=== PATIENT | female | born 2000 | race Hispanic/Latino ===

== ENCOUNTER 2019-02-04 23:06 | Emergency (ER) | payer OTHER ==
[2019-02-04 23:21] VITALS: BP 138/78; PULSE 100; RESP 20; TEMP 98; O2SAT 100
[2019-02-04] MEDS ORDERED: Lidocaine Hydrochloride 5 ML INJ ONE (23:36)
[2019-02-04] MEDS ORDERED: Lidocaine 1% Inj (20ml) INFIL STA (23:58)
--- NOTE | 2019-02-05 00:06 | C.PDOC ---
History Of Present Illness patient reports injuring the toenail of her right great toe while moving a heavy laundry basket just [employer]. she states the nail on that toe has been loose due to a chronic fungal infection. she denies any other injury. Time Seen by Provider: 02/04/19 23:26 Chief Complaint (Nursing): Lower Extremity Problem/Injury History Per: Patient History/Exam Limitations: no limitations Onset/Duration Of Symptoms: Mins Current Symptoms Are (Timing): Still Present Severity: Severe Past Medical History Reviewed: Historical Data, Nursing Documentation, Vital Signs Vital Signs: Last Vital Signs Temp 98 F 02/04/19 23:18 Pulse 100 H 02/04/19 23:18 Resp 20 02/04/19 23:18 BP 138/78 02/04/19 23:18 Pulse Ox 100 02/04/19 23:18 Primary Care Provider: Non [facility] Provider, - Medical History PMH: No Chronic Diseases Family History: States: No Known Family Hx - Social History Hx Alcohol Use: No Hx Substance Use: No Review Of Systems Except As Marked, All Systems Reviewed And Found Negative. Musculoskeletal: Positive for: Foot Pain Physical Exam - Physical Exam Appears: Well, Non-toxic, In Acute Distress (due to pain of toe) Skin: Normal Color Head: Atraumatic, Normacephalic Eye(s): bilateral: Normal Inspection Extremity: Other (right great toenail partially avulsed, no active bleeding. ) ED Course And Treatment O2 Sat by Pulse Oximetry: 100 Progress Note: right great toe digit block performed with plain lidocaine. toenail then removed with scirrors. great toe bandaged with iodoform gauze. Disposition Counseled Patient/Family Regarding: Diagnosis, Need For Followup - Disposition Disposition: HOME/ ROUTINE Disposition Time: 00:10 Condition: STABLE Instructions: Nail Avulsion (DC) Forms: General Discharge Instructions, [facility] ([place]), Work Excuse - Clinical Impression Clinical Impression: Avulsion of toenail of right foot
== END 2019-02-05 00:31 | disposition home or self-care (01) ==
LOC: C.ER 23:06
DX: S91.201A Unspecified open wound of right great toe with damage to nail, initial encounter (principal); X58.XXXA Exposure to other specified factors, initial encounter